=== PATIENT | female | born 1975 | race Caucasian/White ===

== ENCOUNTER → 2021-03-04 | Outpatient (CLI) | payer BC ==
[~2021-03-04] MED LIST: DITROPAN 5 MG TA5 MG PO; DOCUSATE SODIU250 MG PO; HYDROCODONE-AC1 EACH PO; IBUPROFEN600 MG PO; PROLATE PO
[2021-03-04 11:35] LABS: HEMOGLOBIN 14.3 gm/dl (12.3-15.3); RED BLOOD COUNT 4.71 M/UL (4.00-5.10); WHITE BLOOD COUNT 6.4 K/UL (4.5-11.0)
== END ==
LOC: OPSV2 10:01
PROVIDERS: Obstetrics & Gynecology
DX: Z01.818 Encounter for other preprocedural examination (principal); N93.8 Other specified abnormal uterine and vaginal bleeding
CPT/HCPCS: 36415; 81001; 85025

== ENCOUNTER → 2021-03-07 | Day surgery (SDC) | payer BC | END | disposition home or self-care (01) | LOC: OR 05:43 | DX: D25.2 Subserosal leiomyoma of uterus (principal); D25.1 Intramural leiomyoma of uterus; D26.9 Other benign neoplasm of uterus, unspecified; N80.2 Endometriosis of fallopian tube; N72 Inflammatory disease of cervix uteri; D50.0 Iron deficiency anemia secondary to blood loss (chronic); N93.8 Other specified abnormal uterine and vaginal bleeding; E66.9 Obesity, unspecified; Z88.0 Allergy status to penicillin; Z68.41 Body mass index [BMI] 40.0-44.9, adult; N80.3 Endometriosis of pelvic peritoneum; Z20.822 Contact with and (suspected) exposure to COVID-19 | CPT/HCPCS: 36415; 84702; 93005; C1769; J1100; J1170; J1580; J1885; J2001; J2250; J2405; J2550; J2704; J2710; J3010; J7120 ==

== ENCOUNTER 2021-03-16 20:22 | Observation (INO) | payer BC ==
[~2021-03-16] VITALS: Ht 167.6 cm; Wt 104.3 kg
[2021-03-16 21:13] LABS: HEMOGLOBIN 12.2 gm/dl (12.3-15.3); RED BLOOD COUNT 4.07 M/UL (4.00-5.10); WHITE BLOOD COUNT 11.4 K/UL (4.5-11.0)
[2021-03-16 21:30] LABS: BUN/CREATININE RATIO 11 (0-10)
[2021-03-16 22:47] LABS: HEMOGLOBIN 12.1 gm/dl (12.3-15.3); RED BLOOD COUNT 4.05 M/UL (4.00-5.10); WHITE BLOOD COUNT 13.8 K/UL (4.5-11.0)
[2021-03-17 07:15] LABS: HEMOGLOBIN 11.2 gm/dl (12.3-15.3); RED BLOOD COUNT 3.83 M/UL (4.00-5.10)
[2021-03-17 07:26] LABS: WHITE BLOOD COUNT 10.1 K/UL (4.5-11.0)
[2021-03-17 09:36] LABS: BUN/CREATININE RATIO 9 (0-10)
== END 2021-03-17 17:27 | disposition home or self-care (01) ==
LOC: ER1 20:22 → CDU 21:41 → M/S 03-17 00:58
PROVIDERS: Family Medicine; ADMIT Obstetrics & Gynecology
DX: N99.820 Postprocedural hemorrhage of a genitourinary system organ or structure following a genitourinary system procedure (principal); T81.32XA Disruption of internal operation (surgical) wound, not elsewhere classified, initial encounter; Z20.822 Contact with and (suspected) exposure to COVID-19; J98.11 Atelectasis; K44.9 Diaphragmatic hernia without obstruction or gangrene; K76.0 Fatty (change of) liver, not elsewhere classified
CPT/HCPCS: 36430; 71045; 80048; 80053; 85025; 85610; 85730; 86850; 86900; 86901; 86920; 93005; 94760; G0378; J2405; P9016; Q9967; U0002